=== PATIENT | male | born 1980 | race Caucasian/White ===

== ENCOUNTER 2020-12-30 21:41 | Emergency (ER) | payer OTHER | END 2020-12-30 23:45 | disposition home or self-care (01) | LOC: FER 21:41 | DX: M25.562 Pain in left knee (principal); I10 Essential (primary) hypertension; E11.9 Type 2 diabetes mellitus without complications; Z79.84 Long term (current) use of oral hypoglycemic drugs; Z79.899 Other long term (current) drug therapy | CPT/HCPCS: 73560 ==